=== PATIENT | female | born 2000 | race Caucasian/White ===

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

== ENCOUNTER → 2022-06-14 | Outpatient (CLI) | payer BC ==
[~2022-06-14] MED LIST changes: +ACHYD1T PO; +AMOX250S5 PO; +DEXAINTSOL PO; -HYDR-3820 PO; +HYDR15SO8 PO; +TETRACAINESUCKERS MT
--- NOTE | 2022-06-14 15:34 | Diagnostic Imaging Report ---
PROCEDURE: Pelvic comp/transvaginal sonogram. TECHNIQUE: Complete transabdominal and transvaginal pelvic ultrasound was performed. In addition, limited pelvic Doppler was performed. INDICATION: Evaluate IUD. Uterus is anteverted measuring 6.7 x 2.9 x 4.4 cm. Endometrium is 2 mm in thickness. The IUD appears to be appropriately centered in the endometrial canal. No myometrial mass is detected. Right ovary measures 2.8 x 1.3 x 1.7 cm. There is a large cystic mass involving the left ovary measuring approximately 7.0 x 3.7 x 5.6 cm. There are some internal septations present. No definite normal ovarian tissue is seen. There is blood flow to the ovaries. There is no free fluid. IMPRESSION: 1. The IUD is appropriately centered in the endometrial canal. 2. Large left adnexal cyst with internal septations. Follow-up ultrasound in 6-8 weeks is recommended to confirm clearing. Dictated by: Dictated on workstation # [id number]
== END ==
LOC: RAD 12:00
PROVIDERS: ATTEND Nurse Practitioner Women's Health
DX: Z30.431 Encounter for routine checking of intrauterine contraceptive device (principal); N83.8 Other noninflammatory disorders of ovary, fallopian tube and broad ligament
CPT/HCPCS: 76830; 76856

== ENCOUNTER → 2022-07-26 | Outpatient (CLI) | payer BC ==
--- NOTE | 2022-07-26 18:07 | Diagnostic Imaging Report ---
PROCEDURE: Pelvic comp/transvaginal sonogram. TECHNIQUE: Complete transabdominal and transvaginal pelvic ultrasound was performed. In addition, limited pelvic Doppler was performed. INDICATION: Complex left ovarian cyst, follow-up. COMPARISON: Correlation is made with prior ultrasound from 06/14/2022. FINDINGS: The uterus is anteverted measuring 8.0 x 3.0 x 5.2 cm. Endometrium is 6 mm in thickness. No myometrial mass is identified. Right ovary measures 3.5 x 2.2 x 3.2 cm, and the left ovary measures 3.9 x 2.2 x 2.6 cm. Previously noted large cystic mass involving the left ovary is not appreciated on today's study. There is a simple-appearing approximately 18 mm cyst in the left ovary. There appears to be an adjacent collapsed cyst as well. There is blood flow to the ovaries. No free fluid is detected. IMPRESSION: Small left ovarian cysts, as described. The dominant 7 cm cyst seen on the prior exam is no longer visualized. Dictated by: Dictated on workstation # [id number]
== END ==
LOC: RAD 12:00
PROVIDERS: ATTEND Nurse Practitioner Women's Health
DX: N83.292 Other ovarian cyst, left side (principal)
CPT/HCPCS: 76830; 76856